=== PATIENT | male | born 2000 | race Caucasian/White ===

== ENCOUNTER 2019-10-08 15:44 | Emergency (ER) | payer OTHER ==
[~2019-10-08] VITALS: Ht 175.3 cm; Wt 65.8 kg
[~2019-10-08 15:44] MED LIST: NOHOMEMEDICATIONS
[2019-10-08] MEDS ORDERED: LIDODERM1 EACH TRANSDERM (17:52)
[2019-10-08 18:01] VITALS: BP 125/80
== END 2019-10-08 18:02 | disposition home or self-care (01) ==
LOC: M.ERS 15:44
DX: S16.1XXA Strain of muscle, fascia and tendon at neck level, initial encounter (principal); M54.5 Low back pain; V89.2XXA Person injured in unspecified motor-vehicle accident, traffic, initial encounter; Y93.89 Activity, other specified; Y92.89 Other specified places as the place of occurrence of the external cause; Y99.8 Other external cause status

== ENCOUNTER → 2020-01-01 | Outpatient (CLI) | payer OTHER ==
[~2020-01-01] MED LIST changes: +LIDODERM1 EACH TRANSDERM
[2020-01-01 10:22] LABS: SGOT 16 U/L (15-37); SGPT 26 U/L (30-65); TRIGLYCERIDE 100 mg/dL (<150)
== END ==
LOC: M.LAB 09:35
PROVIDERS: Dermatology
DX: L70.0 Acne vulgaris (principal)

== ENCOUNTER 2020-01-09 20:44 | Emergency (ER) | payer OTHER ==
[~2020-01-09] VITALS: Ht 177.8 cm; Wt 72.6 kg
[2020-01-09] MEDS ORDERED: ACCUTANE (20:55)
[2020-01-09 21:44] VITALS: BP 118/55
== END 2020-01-09 21:44 | disposition home or self-care (01) ==
LOC: M.ERS 20:44
DX: S51.011A Laceration without foreign body of right elbow, initial encounter (principal); W25.XXXA Contact with sharp glass, initial encounter; Y93.89 Activity, other specified; Y92.89 Other specified places as the place of occurrence of the external cause; Y99.8 Other external cause status

== ENCOUNTER 2020-01-12 13:06 | Emergency (ER) | payer OTHER ==
[~2020-01-12] VITALS: Ht 177.8 cm; Wt 74.8 kg
[~2020-01-12 13:06] MED LIST changes: +ACCUTANE
[2020-01-12 13:41] VITALS: BP 116/59
== END 2020-01-12 13:42 | disposition home or self-care (01) ==
LOC: M.ERS 13:06
DX: S51.011D Laceration without foreign body of right elbow, subsequent encounter (principal); X58.XXXD Exposure to other specified factors, subsequent encounter

== ENCOUNTER → 2020-02-15 | Outpatient (CLI) | payer OTHER ==
[2020-02-15 15:25] LABS: SGOT 30 U/L (15-37); SGPT 31 U/L (30-65); TRIGLYCERIDE 126 mg/dL (<150)
== END ==
LOC: M.LAB 14:29
PROVIDERS: Dermatology
DX: L70.0 Acne vulgaris (principal)

== ENCOUNTER → 2020-03-21 | Outpatient (CLI) | payer OTHER ==
[2020-03-21 13:25] LABS: SGOT 24 U/L (15-37); SGPT 38 U/L (30-65); TRIGLYCERIDE 105 mg/dL (<150)
== END ==
LOC: M.LAB 12:51
PROVIDERS: Dermatology
DX: L70.0 Acne vulgaris (principal)

== ENCOUNTER 2020-04-24 15:40 | Emergency (ER) | payer OTHER | END 2020-04-24 16:20 | disposition left against medical advice (07) | LOC: M.ERS 15:40 | DX: Z53.21 Procedure and treatment not carried out due to patient leaving prior to being seen by health care provider (principal) ==